=== PATIENT | female | born 1990 | race African-American/Black ===

== ENCOUNTER 2021-06-27 09:34 | Observation (INO) | payer SELFPAY ==
[2021-06-27] VITALS (9 sets, daily range): BP systolic 98–122; BP diastolic 51–84; PULSE 63–119; RESP 16–20; TEMP 36.3–36.9; O2SAT 96–100
--- NOTE | ~2021-06-27 | CT_ITS ---
EXAMINATION: CT abdomen pelvis w con DATE: 06/27/2021 12:41 INDICATION: Epigastric abdominal pain. Nausea and vomiting. TECHNIQUE: Computed tomography (CT) of the abdomen and pelvis was performed with 100 mL Omnipaque 350 intravenous contrast. Automated exposure control and iterative reconstruction technique were employe d. The dose-length product was 422.61 mGy-cm. COMPARISON: None. FINDINGS: The visualized portions of the lung bases demonstrate mild atelectasis. No pleural effusion . The heart size is normal. No pericardial effusion. The liver and spleen are normal. The gallbladder is normal in size and contains hyperdense material that may be sludge or stones. The pancreas and ad renal glands are normal. There are cysts in the kidneys measuring up to 6 mm on the left. There are n o dilated loops of bowel. The appendix is normal. There are no pathologically enlarged lymph nodes. T here is no free intraperitoneal fluid. There is mild thoracolumbar spondylosis. IMPRESSION: 1. No specific etiology for the patient's symptoms. Reviewed, dictated and finalized at location A. [employer]
[2021-06-27] MEDS: SODIUM CHLORIDE 0.9% IV 1,000 ML 999 ML IV CONT (10:20)
[2021-06-27] MEDS: ONDANSETRON INJ 4 MG/2 ML VIAL IV PUSH (10:21)
--- NOTE | 2021-06-27 10:25 | ECG_ITS ---
Measurements Intervals [place] Rate: 67 P: 83 GA: 134 QRS: 85 QRSD: 84 T: 63 QT: 380 QTc: 401 Interpretive Statements SINUS RHYTHM WITH MARKED SINUS ARRHYTHMIA DELAYED PRECORDIAL R/S TRANSITION MINIMAL Q WAVES- HIGH LATERAL LEADS BASELINE ARTIFACT- I, II, III BORDERLINE ECG Electronically Signed On 06-27-2021 20:01:08 SECOND BAKER by Bimal Villavicencio D.O.
[2021-06-27 10:42] LABS: Basophils Absolute Auto 0.04 K/mm3 (0.00-0.10); Basophils Percent Auto 0.6 % (0.0-1.0); Eosinophils Absolute Auto 0.01 K/mm3 (0.02-0.50); Eosinophils Percent Auto 0.2 % (1.0-6.0); Hematocrit 28.4 % (35.0-49.0); Hemoglobin 8.3 g/dL (12.0-15.0); Immature Granulocyte Absolute 0.01 K/mm3 (0.00-0.00); Immature Granulocyte Percent A 0.2 % (0.0-0.0); Lymphocytes Absolute Auto 0.88 K/mm3 (1.10-4.50); Lymphocytes Percent Auto 13.7 % (18.0-42.0); Mean Corpuscular HGB Conc 29.2 g/dL (32.0-36.0); Mean Corpuscular Hemoglobin 23.2 pg (27.0-31.0); Mean Corpuscular Volume 79.3 fL (78.0-102.0); Mean Platelet Volume 9.9 fl (9.2-11.8); Monocytes Absolute Auto 0.35 K/mm3 (0.10-0.90); Monocytes Percent Auto 5.5 % (2.0-11.0); Neutrophils Absolute Auto 5.1 K/mm3 (1.7-7.2); Neutrophils Percent Auto 79.8 % (50.0-70.0); Platelet Count Result 333 K/mm3 (150-420); Red Blood Count 3.58 M/mm3 (4.20-5.40); Red Cell Distribution Width 16.1 % (11.6-14.4); White Blood Count 6.4 K/mm3 (4.8-10.8)
[2021-06-27] MEDS: KETOROLAC 30 MG/ML VIAL (*BKC) IV PUSH (10:45)
[2021-06-27] MEDS: PANTOPRAZOLE SODIUM IV 40 MG VIAL IV PUSH (10:45)
[2021-06-27 11:05] LABS: Alanine Aminotransferase 19 U/L (14-59); Albumin Level 3.9 g/dL (3.4-5.0); Alkaline Phosphatase 63 U/L (46-116); Anion Gap 13 mmol/L (8-16); Aspartate Amino Transferase 12 U/L (15-37); Bilirubin,Total 0.4 mg/dL (0.00-1.00); Blood Urea Nitrogen 15 mg/dL (7-18); Calcium 9.3 mg/dL (8.5-10.1); Carbon Dioxide 24 mmol/L (21-32); Chloride 107 mmol/L (98-108); Estimated CRCL calculation 78 ml/min; Estimated Glomerular Filt Rate > 60; Glucose 100 mg/dL (70-99); Lactic Acid Reflex 1.7 mmol/L (0.4-2.0); Lipase 94 U/L (73-393); Osmolality Calculated 298 mOsm/kg (285-295); Potassium 3.4 mmol/L (3.5-5.1); Sodium 144 mmol/L (136-145); Total Protein 7.2 g/dL (6.4-8.2); Troponin I 4.6 ng/L (0.00-60.4)
[2021-06-27] MEDS: MORPHINE SULFATE (*CRX) 4 MG/ML INJ IV PUSH (11:34)
--- NOTE | 2021-06-27 12:03 | PC.NURSE ---
Lab notified of hcg ordered added to blood work and can run off of the blood already in lab.
[2021-06-27 12:11] LABS: SPREG INTERNAL CONTROL Positive; Serum Qual hCG Negative
--- NOTE | 2021-06-27 12:20 | PC.NURSE ---
Radiology notified of pt negative preg test.
--- NOTE | 2021-06-27 13:22 | ED.NAVMDI ---
HPI - Nausea/Vomiting/Diarrhea General Chief complaint: Nausea/Vomiting/Diarrhea Stated complaint: VOMITTING ABD PAIN Source: patient History of Present Illness HPI Narrative: this is a 31-year-old female that presents with nausea vomiting with epigastric pain with diarrhea with no fever chills, the patient states that she does smoke marijuana, there is no fever chills no chest pain no shortness of breath no suprapubic pain or tenderness no flank pain no dysuria. MD elicited complaint: nausea and vomiting Onset (ago): day(s) Description of vomiting: watery Description of diarrhea: mucus Associated nausea: Yes Associated abdominal pain: Yes Location of pain: epigastric Radiation: epigastric Pain consistency: constant Severity: moderate Related Data Allergies Allergy/AdvReac Type Severity Reaction Status Date / Time No Known Allergies Allergy Verified 06/27/21 10:37 Review of Systems Review of Systems: All systems reviewed & are unremarkable except as noted in HPI and below PMFSH Past Medical History Medical History (Updated 06/27/21 @ 13:26 by Jed Santizo MD) Patient denies medical problems Exam Const: General: no acute distress Orientation/consciousness: patient oriented x3 HENMT: Head: normal to inspection Eyes: Pupils: Equal, round and reactive pupils present Neck: Neck: normal visual inspection, no lymphadenopathy and no meningeal signs Chest: Chest palpation & inspection: normal inspection of the chest Cardio: Rate: regular rate Rhythm: regular rhythm GI: GI Palp: Yes Tenderness to palpation present (GI) ( epigastric) : General: Yes no CVA tenderness Urinary Catheter: Urinary Catheter: patent and draining Back/Spine/Pelvis: Back: no CVA tenderness Skin: General skin exam: normal color Rashes: no rashes Extrem: General: normal to inspection and no pedal edema Psych: Mental Status: mental status grossly normal Affect: normal affect Course Course Emergency Course: patient resting comfortably received IV fluids complaining of epigastric discomfort after episodes of retching and vomiting, Zofran and IV fluids given patient is more comfortable with currently no vomiting no fever or chills labs and CT scan reviewed with patient. Vital Signs Vital signs: Vital Signs Temperature 36.8 C 06/27/21 10:15 Pulse Rate 119 H 06/27/21 10:15 Respiratory Rate 18 06/27/21 10:15 Blood Pressure 122/84 06/27/21 10:15 Pulse Oximetry 100 06/27/21 10:15 Temperature 36.8 C 06/27/21 10:15 Pulse Rate 94 06/27/21 11:35 Respiratory Rate 20 06/27/21 11:35 Blood Pressure 122/84 06/27/21 10:15 Pulse Oximetry 100 06/27/21 11:35 MDM - Nausea/Vomiting/Diarrhea Lab Data Result diagrams: 06/27/21 10:37 06/27/21 10:37 Labs: Lab Results 06/27/21 06/27/21 06/27/21 Range/Units 10:25 10:37 10:37 WBC 6.4 (4.8-10.8) K/mm3 RBC 3.58 L (4.20-5.40) M/mm3 Hgb 8.3 L (12.0-15.0) g/dL Hct 28.4 L (35.0-49.0) % MCV 79.3 (78.0-102.0) fL MCH 23.2 L (27.0-31.0) pg MCHC 29.2 L (32.0-36.0) g/dL RDW 16.1 H (11.6-14.4) % Plt Count 333 (150-420) K/mm3 MPV 9.9 (9.2-11.8) fl Immature Gran % (Auto) 0.2 H (0.0-0.0) % Neut % (Auto) 79.8 H (50.0-70.0) % Lymph % (Auto) 13.7 L (18.0-42.0) % [place] % (Auto) 5.5 (2.0-11.0) % Eos % (Auto) 0.2 L (1.0-6.0) % Baso % (Auto) 0.6 (0.0-1.0) % Lymph # (Auto) 0.88 L (1.10-4.50) K/mm3 [place] # (Auto) 0.35 (0.10-0.90) K/mm3 Eos # (Auto) 0.01 L (0.02-0.50) K/mm3 Baso # (Auto) 0.04 (0.00-0.10) K/mm3 Abs Immat Gran (auto) 0.01 H (0.00-0.00) K/mm3 Absolute Neuts (auto) 5.1 (1.7-7.2) K/mm3 Absolute Nucleated RBC 0.00 (0.00-0.00) K/mm3 Nucleated RBC % 0.0 (0-0.0) % Sodium 144 (136-145) mmol/L Potassium 3.4 L (3.5-5.1) mmol/L Chloride 107 (98-108) mmol/L Carbon Dioxide 24 (21-32) mmol/L Anion Ga
--- NOTE | 2021-06-27 13:33 | PC.NURSE ---
Floor and registration notified pt is being admitted under observation.
[2021-06-27 14:00] LABS: SARS-CoV-2 Ag Negative (Negative)
--- NOTE | 2021-06-27 14:03 | PC.NURSE ---
Phone report given to MICHAEL Lam
--- NOTE | 2021-06-27 14:25 | PM.IMHP ---
H&P: HPI History of Present Illness Date/Time: 06/27/21 14:25 Anabelle Wharton is a 31 year old female who is being admitted under Observation for Epigastric Abdominal pain with Nausea and Vomiting. Pt states her vomiting started yesterday. She has been vomiting about every 15-20 minutes or so. She does not recall consuming anything that was undercooked. She denies illicit drug use, no recent changes to medications, no past medical history of note, denies any injury, denies hematemesis or melena. She was recently taking Pt states the Zofran and Morphine does not help much. Her pain is a pulsing type sharp pain at a 10/10 in the epigastric area. Pt states she has had the same symptoms about 6 weeks ago and she was informed at that time it was likely due to a viral illness. Negative for COVID. Chief Complaint: nausea and vomiting Review of Systems Review of Systems: All systems reviewed & are unremarkable except as noted in HPI and below PMFSH Past Medical History Medical History Patient denies medical problems Meds Home Medications and Allergies Home Medications Medication Instructions Recorded Confirmed Type ondansetron HCl [Zofran] 4 mg PO Q6H PRN #14 tablet 06/27/21 Rx pantoprazole [Protonix] 40 mg PO QAM 28 Days #28 tablet 06/27/21 Rx Allergies Allergy/AdvReac Type Severity Reaction Status Date / Time No Known Allergies Allergy Verified 06/27/21 10:37 Vital Signs Vital Signs - 24 hr 06/27/21 10:15 06/27/21 11:35 06/27/21 13:48 Temperature 98.2 F Pulse Rate 119 H 94 Respiratory Rate 18 20 Blood Pressure 122/84 Pulse Oximetry 100 100 98 06/27/21 13:51 06/27/21 14:04 Temperature Pulse Rate 64 65 Respiratory Rate 18 18 Blood Pressure 110/73 115/67 Pulse Oximetry 100 100 Exam Const: General: cooperative, healthy appearing, comfortable, no acute distress, well developed, alert, awake, Physically active and uncomfortable Nutritional Appearance: overweight Resp: Effort & Inspection: normal respiratory effort and no cough Auscultation: clear to auscultation bilaterally Cardio: Jugular venous distension: no JVD Rate: regular rate Heart sounds: S1 normal heart sound present and S2 normal heart sound present GI: Inspection: other (Left lower rib area appear with slight swelling and is tender to touch) GI Palp: Yes abdominal tenderness (epigastric and as noted above), Yes Soft to palpation, Yes Tenderness to palpation present (GI), Yes Guarding due to palpation present (GI) and Yes No hepatosplenomegaly present Auscultation: Hypoactive bowel sounds present Other: Dry heaving Skin: General skin exam: normal color and dry skin Extrem: General: no pedal edema Psych: Appearance: grossly normal Mental Status: mental status grossly normal Speech and movement: Normal speech and movement present Affect: normal affect Attitude: cooperative Thought process: Normal thought process present H&P: Results Labs Labs: Short CBC 06/27/21 Range/Units 10:37 WBC 6.4 (4.8-10.8) K/mm3 Hgb 8.3 L (12.0-15.0) g/dL Hct 28.4 L (35.0-49.0) % Plt Count 333 (150-420) K/mm3 BMP 06/27/21 10:37 Sodium 144 Potassium 3.4 L Chloride 107 Carbon Dioxide 24 BUN 15 Creatinine 0.80 Glucose 100 H Calcium 9.3 Cardiac Enzymes 06/27/21 Range/Units 10:37 Troponin I 4.6 (0.00-60.4) ng/L Liver Function 06/27/21 Range/Units 10:37 Total Bilirubin 0.4 (0.00-1.00) mg/dL AST 12 L (15-37) U/L ALT 19 (14-59) U/L Alkaline Phosphatase 63 (46-116) U/L Albumin 3.9 (3.4-5.0) g/dL Assessment and Plan Assessment and plan (1) Gastroenteritis: Code(s): K52.9 - Noninfective gastroenteritis and colitis, unspecified Status: Acute Assessment and Plan: Epigastric pain, WBC 6.4, normochromic anemia H/H 8.3/28.4, Negative COVID, Negative test, Has has some chills, epigastr
--- NOTE | 2021-06-27 14:58 | PC.NURSE ---
Pt admitted to room 203 from the ER as an Observation pt. Pt having nausea, abdominal pain and vomiting. VS stable. She is A/O x 3. Transfered to the bed with assist x 1. Pt belongings placed in Right dresser. Belongings include Cell phone, wallet, car keys and clothing.
[2021-06-27] MEDS: PROCHLORPERAZINE EDISYLATE 10 MG/2 ML VIAL IV PUSH (15:05)
[2021-06-27] MEDS: SODIUM CHLORIDE 0.9% IV 1,000 ML 100 ML IV CONT ×2 (15:11→23:36)
[2021-06-27] MEDS: CYCLOBENZAPRINE HCL 10 MG TABLET PO (15:13)
[2021-06-27] MEDS: HYDROcodone/acetaminophen (*CRX) 7.5-325 MG TABLET 1 TAB PO ×2 (15:45→22:14)
--- NOTE | 2021-06-27 18:25 | PC.NURSE ---
PT HAS BEEN RESTING WELL SINCE ADMINISTRATION OF COMPAZINE, NORCO, AND FLEXERIL. STATES PAIN HAS GONE FROM A CONSTANT 10/10 TO MAYBE A 2-3/10 AND ONLY HERE AND THERE. NAUSEA HAS MARKEDLY IMPROVED AND NO MORE EMESIS. PT UP TO BATHROOM TO VOID. WILL COLLECT URINE SPECIMEN.
--- NOTE | 2021-06-27 18:30 | PC.NURSE ---
URINE COLLECTED AND TAKEN TO LAB.
[2021-06-27 19:30] LABS: Appearance Urine Clear (Clear); Bilirubin Urine Negative (Negative); Color Urine Light Yellow (Yellow); Glucose Urine UA Negative (Negative); Ketones Urine 3+ (Negative); Leukocyte Esterase Ur Negative (Negative); Nitrate Urine Negative (Negative); Protein Urine Trace (Negative); Urobilinogen Urine 0.2 mg/dL (0.2-1.0); pH Urine 6.5 (5.0-8.0)
[2021-06-27 19:37] LABS: Amphetamine Screen Urine Negative (Negative); Barbiturate Screen Urine Negative (Negative); Benzodiazepines Screen Urine Negative (Negative); Cannabinoid Screen Urine Positive (Negative); Cocaine Screen Urine Negative (Negative); Methadone Screen Urine Negative (Negative); Opiate Screen Urine Positive (Negative); Phencyclidine Screen Urine Negative (Negative)
[2021-06-27 19:44] LABS: Add Urine Microscopic? YES; Blood Urine Trace-Intact (Negative)
[2021-06-27 19:45] LABS: Bacteria Urine Trace /hpf; Mucus Urine Rare /lpf; RBC Urine 0-2 /hpf (0-2); Squamous Epithelial Cell Urine Few /hpf (Few); WBC Urine 0-3 /hpf (0-3)
[2021-06-28 04:00] VITALS: BP 107/55; PULSE 84; RESP 18; TEMP 36.6; O2SAT 99
[2021-06-28 05:24] LABS: Basophils Absolute Auto 0.02 K/mm3 (0.00-0.10); Basophils Percent Auto 0.4 % (0.0-1.0); Eosinophils Absolute Auto 0.01 K/mm3 (0.02-0.50); Eosinophils Percent Auto 0.2 % (1.0-6.0); Hematocrit 26.6 % (35.0-49.0); Hemoglobin 7.6 g/dL (12.0-15.0); Immature Granulocyte Absolute 0.01 K/mm3 (0.00-0.00); Immature Granulocyte Percent A 0.2 % (0.0-0.0); Lymphocytes Absolute Auto 1.66 K/mm3 (1.10-4.50); Lymphocytes Percent Auto 33.3 % (18.0-42.0); Mean Corpuscular HGB Conc 28.6 g/dL (32.0-36.0); Mean Corpuscular Hemoglobin 22.8 pg (27.0-31.0); Mean Corpuscular Volume 79.6 fL (78.0-102.0); Mean Platelet Volume 9.8 fl (9.2-11.8); Monocytes Absolute Auto 0.47 K/mm3 (0.10-0.90); Monocytes Percent Auto 9.4 % (2.0-11.0); Neutrophils Absolute Auto 2.8 K/mm3 (1.7-7.2); Neutrophils Percent Auto 56.5 % (50.0-70.0); Platelet Count Result 289 K/mm3 (150-420); Red Blood Count 3.34 M/mm3 (4.20-5.40); Red Cell Distribution Width 16.4 % (11.6-14.4)
[2021-06-28 05:39] LABS: Alanine Aminotransferase 16 U/L (14-59); Albumin Level 3.2 g/dL (3.4-5.0); Alkaline Phosphatase 54 U/L (46-116); Anion Gap 15 mmol/L (8-16); Aspartate Amino Transferase < 10 U/L (15-37); Bilirubin,Total 0.4 mg/dL (0.00-1.00); Blood Urea Nitrogen 15 mg/dL (7-18); Calcium 8.5 mg/dL (8.5-10.1); Carbon Dioxide 22 mmol/L (21-32); Chloride 108 mmol/L (98-108); Estimated CRCL calculation 85 ml/min; Estimated Glomerular Filt Rate > 60; Glucose 72 mg/dL (70-99); Magnesium 1.8 mg/dL (1.8-2.4); Osmolality Calculated 299 mOsm/kg (285-295); Potassium 3.1 mmol/L (3.5-5.1); Sodium 145 mmol/L (136-145); Total Protein 6.2 g/dL (6.4-8.2)
[2021-06-28 08:00] VITALS: BP 106/65; PULSE 80; RESP 18; TEMP 36.6; O2SAT 99
[2021-06-28] MEDS: KCL 20 MEQ/SW 100 ML 100 ML 50 MEQ IVPB (08:14)
[2021-06-28] MEDS: PANTOPRAZOLE SODIUM IV 40 MG VIAL IV PUSH (08:14)
[2021-06-28 08:48] LABS: Ferritin 5 ng/mL (8-252); Iron 40 ug/dL (50-170); Percent Iron Saturation 14 % (12-57); Vitamin B12 410 pg/mL (193-986)
[2021-06-28 08:50] LABS: Thyroid Stimulating Hormone Reflex 0.82 u/IU/mL (0.36-3.74)
[2021-06-28] MEDS: SODIUM CHLORIDE 0.9% IV 1,000 ML 100 ML IV CONT (09:35)
[2021-06-28] MEDS: FERROUS SULFATE 324 MG TABLET PO (10:19)
[2021-06-28] MEDS: POTASSIUM CHLORIDE 20 MEQ TABLET PO (11:36)
[2021-06-28 12:00] VITALS: BP 117/74; PULSE 84; RESP 20; TEMP 36.6; O2SAT 100
--- NOTE | 2021-06-28 12:56 | PM.DS ---
DS: Admitting Diagnosis Discharge Date 06/28/2021 Admitting Diagnosis Dehydration, Gastroenteritis, Hypokalemia, Nausea and Vomiting DS: Discharge Diagnosis Discharge Diagnosis (1) Gastroenteritis: Code(s): K52.9 - Noninfective gastroenteritis and colitis, unspecified Status: Acute Assessment and Plan: Epigastric pain, WBC 6.4, normochromic anemia H/H 8.3/28.4, Negative COVID, Negative test, Has has some chills, epigastric pain with pain at lower left rib likely from retching / vomiting, Morphine is not effective neither is Zofran will try Forbes and Compazine 06/28/2021 Pt is tolerating PO food and fluid well. Pt will need to follow up with her PCP or get established with one while she is here for work. (2) Iron deficiency anemia: Code(s): D50.9 - Iron deficiency anemia, unspecified Status: Acute Assessment and Plan: 06/28/2021 Have started Pt on Ferrous Sulfate PO 324mg every other day. (3) Nausea and vomiting: Qualifiers: Vomiting Intractability: unspecified Vomiting type: unspecified Qualified Code(s): R11.2 - Nausea with vomiting, unspecified Code(s): R11.2 - Nausea with vomiting, unspecified Status: Acute Assessment and Plan: Pt is dry heaving at this time, will try Compazine and Forbes, IVF NS @ 100mL/h 06/28/2021 Resolved (4) Dehydration: Code(s): E86.0 - Dehydration Status: Acute Assessment and Plan: Due to vomiting, IVF NS @ 100/h 06/28/2021 DC'ed, taking PO fluids well. (5) Hypokalemia: Code(s): E87.6 - Hypokalemia Status: Acute Assessment and Plan: Currently 3.4, will monitor 06/28/2021 Pt received 20 mEq potassium and PO 20 mEq potassium DS: Summary Hospital Course Hospital Course: Pt's N/V resolved, identified Iron Def Anemia and ordered FeSulfate, tolerating PO fluids Time Spent with Patient Time attestation: Total time spent providing and/or coordinating discharge services: < 30 minutes Exam Const: General: cooperative, healthy appearing, comfortable, no acute distress, well developed, alert, awake and Physically active Nutritional Appearance: overweight Resp: Effort & Inspection: normal respiratory effort, able to speak in complete sentences and no cough Auscultation: clear to auscultation bilaterally, no crackles, no rales, no rhonchi and no wheezes Cardio: Jugular venous distension: no JVD Rate: regular rate Heart sounds: S1 normal heart sound present and S2 normal heart sound present GI: GI Palp: Yes Soft to palpation and No Tenderness to palpation present (GI) Auscultation: Hypoactive bowel sounds present Skin: General skin exam: normal color and dry skin Neuro: General: oriented to person, oriented to place and oriented to time Cranial nerves: Yes CN's II-XII intact bilaterally (grossly intact) Cognition (Neuro): normal cognition Speech: normal speech Motor exam (neuro): 5/5 motor strength present throughout Extrem: General: full ROM, no pedal edema and no calf tenderness Psych: Appearance: grossly normal Mental Status: mental status grossly normal Speech and movement: Normal speech and movement present Affect: normal affect Attitude: cooperative Thought process: Normal thought process present DS: Data Data Completed and Pending Labs on day of discharge: Labs from last 24 hours 06/28/21 06/28/21 06/28/21 07:26 07:25 07:25 WBC RBC Hgb Hct MCV MCH MCHC RDW Plt Count MPV Immature Gran % (Auto) Neut % (Auto) Lymph % (Auto) [place] % (Auto) Eos % (Auto) Baso % (Auto) Lymph # (Auto) [place] # (Auto) Eos # (Auto) Baso # (Auto) Abs Immat Gran (auto) Absolute Neuts (auto) Absolute Nucleated RBC Nucleated RBC % Sodium Potassium Chloride Carbon Dioxide Anion Gap BUN Creatinine Estim Creat Clear Calc Estimated GFR Glucose Calculated Osmolality Calc
--- NOTE | 2021-06-28 13:50 | PC.NURSE ---
Discharge instructions reviewed with patient, patient verbalizes understanding. Patient ambulated off floor, escorted to main door.
[2021-07-02 17:17] LABS: Transferrin 287 mg/dL (188-341)
--- NOTE | 2021-07-03 14:39 | PC.NURSE ---
Unable to contact for discharge call back.
== END 2021-06-28 13:50 | disposition home or self-care (01) ==
LOC: CHSED 13:32 → CHS2ND 13:38
PROVIDERS: Nurse Practitioner Family; Admitting Provider Emergency Medicine; Emergency Provider Emergency Medicine; Visit Provider Emergency Medicine
DX: K52.9 Noninfective gastroenteritis and colitis, unspecified (principal); E86.0 Dehydration; E87.6 Hypokalemia; D50.9 Iron deficiency anemia, unspecified; Z20.822 Contact with and (suspected) exposure to COVID-19
CPT/HCPCS: 36415; 74177; 80053; 80307; 81001; 82607; 82728; 82746; 83540; 83550; 83605; 83690; 83735; 84443; 84466; 84484; 84703; 85025; 87040; 87426; 93005; 96361; 96365; 96366; 96374; 96375; 99285; A9270; C9113; C9803; G0378; G0379; J0780; J1885; J2270; J2405; J3480; J7030; Q9967